=== PATIENT | male | born 1975 | race Caucasian/White ===

== ENCOUNTER → 2025-05-31 13:42 | Outpatient (REF) | payer BC, SELFPAY | LOC: DHSLP 13:42 | PROVIDERS: ATTENDING PHYSICIAN Student in an Organized Health Care Education/Training Program; FAMILY PHYSICIAN Family Medicine | DX: G47.33 Obstructive sleep apnea (adult) (pediatric) (principal); G47.61 Periodic limb movement disorder | CPT/HCPCS: 95811 ==